=== PATIENT | male | born 1950 | race Hispanic/Latino ===

== ENCOUNTER 2023-11-24 16:21 | Emergency (ER) | payer MEDICARE, OTHER ==
[~2023-11-24] VITALS: Ht 175.3 cm; Wt 92.5 kg
[2023-11-24 19:10] VITALS: PULSE 56; RESP 17; TEMP 97.9
[2023-11-24 20:14] VITALS: BP 133/73; PULSE 56; RESP 17; TEMP 97.9; O2SAT 99
== END 2023-11-24 20:14 | disposition home or self-care (01) ==
LOC: ER 17:03
DX: S80.11XA Contusion of right lower leg, initial encounter (principal); V49.40XA Driver injured in collision with unspecified motor vehicles in traffic accident, initial encounter; I10 Essential (primary) hypertension
CPT/HCPCS: 99283